=== PATIENT | male | born 1995 | race Caucasian/White ===

== ENCOUNTER 2018-09-19 11:39 | Emergency (ER) | payer OTHER ==
[~2018-09-19] VITALS: Ht 188 cm; Wt 97.5 kg
[2018-09-19 12:17] LABS: ABSOLUTE LYMPHOCYTES 1.9 thou/uL (0.8-5.3); ABSOLUTE MONOCYTES 0.5 thou/uL (0.0-1.2); ABSOLUTE NEUTROPHILS 2.3 thou/uL (1.6-8.1); BASOPHILS 0.5 %; EOSINOPHILS 0.8 %; HEMATOCRIT 45.6 % (42.0-52.0); HEMOGLOBIN 15.4 gm/dL (14.0-18.0); LYMPHOCYTES 39.9 %; MCH 30.1 pg (26.0-34.0); MCHC 33.8 g/dL (28.0-37.0); MCV 89.2 fL (80.0-100.0); MONOCYTES 10.4 %; MPV 9.8 fl. (7.2-11.1); NUCLEATED RBCS 0 /100WBC; PLATELET COUNT* 154 thou/uL (150-400); POLYS 48.4 %; RBC 5.12 mil/uL (4.50-6.00); RDW-CV 13.6 % (10.5-14.5); WBC 4.7 thou/uL (4.0-11.0)
[2018-09-19 12:31] LABS: ANION GAP 10 mmol/L (7-16); BUN 35 mg/dL (7-18); CALCIUM 8.7 mg/dL (8.5-10.1); CHLORIDE 103 mmol/L (98-107); CO2 27 mmol/L (21-32); CREATININE 1.2 mg/dL (0.6-1.3); GLUCOSE 90 mg/dL (70-99); POTASSIUM 3.7 mmol/L (3.5-5.1); SODIUM 140 mmol/L (136-145)
[2018-09-19 12:46] LABS: ALBUMIN 3.8 g/dL (3.4-5.0); ALKALINE PHOSPHATASE 57 U/L (46-116); MAGNESIUM 2.1 mg/dL (1.8-2.4); SGOT 59 U/L (15-37); SGPT 43 U/L (30-65); TOTAL BILIRUBIN 0.4 mg/dL (<0.1-1.0); TOTAL PROTEIN 6.9 g/dL (6.4-8.2); TROPONIN-I LEVEL <0.06 ng/mL (<0.06)
[2018-09-19 13:33] VITALS: BP 108/43
--- NOTE | 2018-09-19 15:51 | EKG ---
[place] [address] ELECTROCARDIOGRAM REPORT Name: RUBY GRIGSBY [facility] [place] [id number] Admission: 09/19/18 Attend Phys: Discharge: 09/19/18 Date of : [birth year] Report #: [id number] THIS REPORT FOR: //name// [facility] ED Test Date: 2018-09-19 Test Time: 11:42:43 Pat Name: RUBY GRIGSBY Department: Room: Gender: Hot Room Attendant: Madison WHITE : 1995 Requested By: Rodri Leal Order Number: [id number] MD: Colin Villalba Measurements Intervals [place] Rate: 67 P: 74 ND: 145 QRS: 86 QRSD: 100 T: 37 QT: 381 QTc: 403 Interpretive Statements Sinus rhythm No previous ECG available for comparison Electronically Signed On 09-19-2018 15:50:46 ANESTHETIST by Colin Villalba [email or web address] <ELECTRONICALLY SIGNED> By: Colin Villalba MD, [facility] 09/19/18 1550 1142 1142 Colin Villalba MD, FACC /EPI
== END 2018-09-19 13:34 | disposition home or self-care (01) ==
LOC: M.ERS 11:39
PROVIDERS: Emergency Medicine
DX: R00.2 Palpitations (principal); J45.909 Unspecified asthma, uncomplicated; Z88.0 Allergy status to penicillin